=== PATIENT | male | born 1980 ===

== ENCOUNTER 2016-06-11 21:14 | Emergency (ER) | payer SELFPAY ==
--- NOTE | 2016-06-11 22:39 | UC ---
Throat Pain/Nasal Gunnar HPI - HPI Summary HPI Summary: The patient comes in today for: 1. Sore throat: Onset: yesterday. Palliative/provocative: swallowing makes it worse. Quality: Sore Region: Posterior pharynx. Severity: 08/24 Time: Constant. Associated symptoms: Rhinitis: None. Cough: None. Last strep infection: March of this year. Rx. PCN done well. * - History of Current Complaint Stated Complaint: SORE THROAT Time Seen by Provider: 06/11/16 22:22 Hx Obtained From: Patient - Allergies/Home Medications Allergies/Adverse Reactions: Allergies Allergy/AdvReac Type Severity Reaction Status Date / Time No Known Allergies Allergy Verified 06/11/16 22:24 Home Medications: Home Medications Acetaminophen TAB* [Tylenol TAB*] 500 mg PO DAILY PRN 06/11/16 [History Confirmed 06/11/16] PMH/Surg Hx/FS Hx/Imm Hx Previously Healthy: Yes Endocrine History Of: Denies: Diabetes, Thyroid Disease, Hyperthyroidism, Hypothyroidism, Dyslipidemia Cardiovascular History Of: Denies: Cardiac Disorders, Hypertension, Pacemaker/ICD, Myocardial Infarction , Congestive Heart Failure, Atrial Fibrillation, Deep Vein Thrombosis, Bleeding Disorders Respiratory History Of: Denies: COPD, Asthma, Bronchitis, Pneumonia, Pulmonary Embolism GI/ History Of: Denies: Gastroesophageal Reflux, Ulcer, Gastrointestinal Bleed, Gall Bladder Disease, Kidney Stones, Diverticulitis, Renal Disease, Urosepsis Neurological History Of: Denies: TIA, CVA, Dementia, Seizures, Migraine Psychological History Of: Denies: Anxiety, Depression, Bipolar Disorder, Schizophrenia, Post Traumatic Stress Disorder Cancer History Of: Denies: Lung Cancer, Colorectal Cancer, Breast Cancer, Prostate Cancer, Cervical Cancer Other History Of: Negative For: HIV, Hepatitis B, Hepatitis C, Anticoagulant Therapy - Surgical History Surgical History: None - Family History Known Family History: Positive: Hypertension, Diabetes - Social History Occupation: Employed Full-time Alcohol Use: Rare Substance Use Type: None Smoking Status (MU): Never Smoked Tobacco Review of Systems Constitutional: Negative Skin: Negative Eyes: Negative ENT: Sore Throat Respiratory: Negative Cardiovascular: Negative Gastrointestinal: Negative Genitourinary: Negative All Other Systems Reviewed And Are Negative: Yes Physical Exam Triage Information Reviewed: Yes Appearance: Well-Appearing, No Pain Distress, Well-Nourished Vital Signs: Initial Vital Signs Temp 99.8 F 06/11/16 22:16 Pulse 81 06/11/16 22:16 Resp 18 06/11/16 22:16 BP 115/60 06/11/16 22:16 Pulse Ox 100 06/11/16 22:16 Vital Signs Reviewed: Yes Eyes: Positive: Conjunctiva Clear. Negative: Discharge ENT: Positive: Hearing grossly normal. Negative: Pharyngeal erythema, Nasal congestion, Nasal drainage, TM bulging, TM dull, TM red, Tonsillar swelling, Tonsillar exudate Dental: Negative: Gross Decay/Caries @, Dental Fracture @ Neck: Positive: Supple, Nontender, No Lymphadenopathy. Negative: Nuchal Rigidity Respiratory: Positive: Chest non-tender, Lungs clear, No respiratory distress, No accessory muscle use. Negative: Crackles, Rhonchi Cardiovascular: Positive: RRR, No Murmur Abdomen Description: Positive: Nontender, No Organomegaly, Soft. Negative: Distended, Guarding Musculoskeletal: Positive: Strength Intact, ROM Intact, No Edema Neurological: Positive: Alert, Muscle Tone Normal Psychological: Positive: Age Appropriate Behavior, Consolable Diagnostics - Laboratory Diagnostic Studies Completed/Ordered: Strep test was normal. Throat Pain/Nasal Course/Dx - Course Course Of Treatment: Patient was told of the negative strep test. However, he will be traveling soon and we discussed having PCN in the event he gets worse while traveling. He and his agreed. He agreed to take viscous lidocaine. - Differential Dx/Diagnosis Differential Diagnosis/HQI/PQRI: Laryngitis, Pharyngitis Provider Diagnoses: Viral PHaryngitis Discharge - Discharge Plan Condition: Stable Disposition: HOME Patient Education Materials: Pharyngitis (ED) Additional Instructions: Please use the viscous lidocaine as needed for throat pain. If you don't improve over the next several days, and particularly if you get worse, and particularly also if you have any white exudates on the back of the throat, you may want to start the penicillin antibiotic while you are traveling.
[2016-06-11 22:45] VITALS: BP 115/60
[2016-06-11] MEDS ORDERED: Lidocaine 2% VISCOUS* 15 ML UDC PO ONE (23:06)
== END 2016-06-11 23:17 | disposition home or self-care (01) ==
LOC: UCCORT 21:14
DX: J02.9 Acute pharyngitis, unspecified (principal)
CPT/HCPCS: 87651; 99202; G0463